=== PATIENT | male | born 1940 | race Caucasian/White ===

== ENCOUNTER → 2017-12-07 | Outpatient (CLI) | payer OTHER, MEDICARE ==
[~2017-12-07] MED LIST: AMLO5TAB2 PO; B2/V1TAB PO; FERR325T22 PO; LISI40TA4 PO; METOPROLOL PO; PANT40TA25 PO; ROSU20TA PO; ZOLP5TAB8 PO
== END | disposition home or self-care (01) ==
LOC: RAH 10:04
PROVIDERS: ATTEND Internal Medicine
DX: K76.0 Fatty (change of) liver, not elsewhere classified (principal); N28.1 Cyst of kidney, acquired
CPT/HCPCS: 76705

== ENCOUNTER 2018-01-04 12:10 | Inpatient (IN) | payer OTHER, MEDICARE ==
[~2018-01-04] VITALS: Ht 162.6 cm; Wt 79.8 kg
[2018-01-04 13:10] LABS: CREATININE 5.7 mg/dL (0.5-1.5)
[2018-01-04 13:12] LABS: BASOPHILS % (AUTO) 0.3 % (0.0-5.0); HEMATOCRIT 28.7 % (42-54); LYMPHOCYTES % (AUTO) 2.3 % (21.0-51.0); MEAN CORPUSCULAR HEMOGLOBIN 27.8 pg (27.0-33.0); MEAN CORPUSCULAR HGB CONC 33.1 g/dL (32.0-36.0); MEAN CORPUSCULAR VOLUME 84.1 fL (79-99); MONOCYTES % (AUTO) 7.9 % (3.0-13.0); NEUTROPHILS % (AUTO) 89.5 % (40.0-77.0); PLATELET COUNT (AUTO) 72 K/uL (130-400); RED BLOOD CELL COUNT(AUTO) 3.42 MIL/uL (4.50-6.20); WHITE BLOOD COUNT (AUTO) 11.4 K/uL (4.8-10.8)
[2018-01-04 13:15] LABS: ALBUMIN 2.9 g/dL (3.5-5.0); BILIRUBIN,TOTAL 0.7 mg/dL (0.2-1.0); TOTAL PROTEIN, SERUM 7.1 g/dL (6.0-8.3)
[2018-01-04] MEDS ORDERED: SODIUM CHLORIDE 0.9% 1000ML 1,000 ML IV ONE (13:24)
[2018-01-04] MEDS ORDERED: METRONIDAZOLE 500MG/100ML BAG 100 ML ONE (14:39)
[2018-01-04 15:00] LABS: APPEARANCE,URINE Turbid (CLEAR); BILIRUBIN,URINE Negative (NEGATIVE); COLOR,URINE Yellow (YELLOW); GLUCOSE, URINE (UA) Negative (NEGATIVE); KETONES,URINE Negative (NEGATIVE); LEUKOCYTE ESTERASE ,URINE Small (NEGATIVE); NITRATE,URINE Negative (NEGATIVE); OCCULT BLOOD,URINE Trace (NEGATIVE); PROTEIN,URINE POS 2+ (NEGATIVE); UROBILINOGEN,URINE 0.2 mg/dL (0.2-1.0)
[2018-01-04 15:25] LABS: BACTERIA,URINE Few /HPF (None Seen); RBC,URINE None Seen /HPF (0-1)
[2018-01-04 15:26] LABS: AMORPHOUS SEDIMENT,UR Many /LPF (None Seen)
[2018-01-04] MEDS ORDERED: MORPHINE SULFATE 2 MG/ML 1ML SYG ONE (17:03)
[2018-01-04] MEDS: METRONIDAZOLE 500MG/100ML BAG 100 ML IV SCH (22:00)
[2018-01-04] MEDS ORDERED: FAMOTIDINE/PF 20 MG/2 ML VIAL IV ONE (22:32)
[2018-01-04 23:01] VITALS: BP 107/57
[2018-01-04] MEDS: LEVOFLOXACIN 250 MG/D5W 50ML 50 ML IVPB SCH (23:10)
[2018-01-04] MEDS: SODIUM CHLORIDE 0.9% 1000ML 1,000 ML IV SCH (23:10)
[2018-01-04] MEDS: MORPHINE SULFATE 4 MG/1ML SYG IVP PRN (23:31)
[2018-01-05 04:12] VITALS: BP 99/57
[2018-01-05 04:40] LABS: BASOPHILS % (AUTO) 0.3 % (0.0-5.0); HEMATOCRIT 27.9 % (42-54); LYMPHOCYTES % (AUTO) 3.5 % (21.0-51.0); MEAN CORPUSCULAR HEMOGLOBIN 28.2 pg (27.0-33.0); MEAN CORPUSCULAR HGB CONC 33.3 g/dL (32.0-36.0); MEAN CORPUSCULAR VOLUME 84.7 fL (79-99); MONOCYTES % (AUTO) 8.3 % (3.0-13.0); NEUTROPHILS % (AUTO) 87.9 % (40.0-77.0); PLATELET COUNT (AUTO) 73 K/uL (130-400); RED BLOOD CELL COUNT(AUTO) 3.29 MIL/uL (4.50-6.20); WHITE BLOOD COUNT (AUTO) 8.6 K/uL (4.8-10.8)
[2018-01-05 04:54] LABS: ALBUMIN 2.6 g/dL (3.5-5.0); BILIRUBIN,TOTAL 0.5 mg/dL (0.2-1.0); CREATININE 5.6 mg/dL (0.5-1.5); POTASSIUM 4.1 mmol/L (3.5-5.1); TOTAL PROTEIN, SERUM 6.6 g/dL (6.0-8.3)
[2018-01-05] MEDS: METRONIDAZOLE 500MG/100ML BAG 100 ML IV SCH ×3 (05:35→22:35)
[2018-01-05] MEDS: MORPHINE SULFATE 4 MG/1ML SYG IVP PRN ×2 (06:57→16:37)
[2018-01-05 07:00] VITALS: BP 115/74
[2018-01-05] MEDS: FAMOTIDINE/PF 20 MG/2 ML VIAL IV SCH (08:26)
[2018-01-05] MEDS ORDERED: ENOXAPARIN SODIUM 30 MG/0.3 ML SQ SCH (09:00)
[2018-01-05 11:00] VITALS: BP 125/53
[2018-01-05] MEDS: SODIUM CHLORIDE 0.9% 1000ML 1,000 ML IV SCH ×2 (11:41→16:00)
[2018-01-05 16:00] VITALS: BP 92/50
[2018-01-05] MEDS: LEVOFLOXACIN 250 MG/D5W 50ML 50 ML IVPB SCH (16:38)
[2018-01-05 20:00] VITALS: BP 102/53
[2018-01-05 23:28] VITALS: BP 93/51
[2018-01-06] VITALS (7 sets, daily range): BP systolic 93–118; BP diastolic 51–64
[2018-01-06] MEDS: SODIUM CHLORIDE 0.9% 1000ML 1,000 ML IV SCH ×2 (01:04→14:01)
[2018-01-06] MEDS: MORPHINE SULFATE 4 MG/1ML SYG IVP PRN ×3 (01:33→19:01)
[2018-01-06 03:53] LABS: BASOPHILS % (AUTO) 0.1 % (0.0-5.0); HEMATOCRIT 26.9 % (42-54); LYMPHOCYTES % (AUTO) 2.4 % (21.0-51.0); MEAN CORPUSCULAR HEMOGLOBIN 27.9 pg (27.0-33.0); MEAN CORPUSCULAR VOLUME 84.4 fL (79-99); MONOCYTES % (AUTO) 10.7 % (3.0-13.0); NEUTROPHILS % (AUTO) 86.8 % (40.0-77.0); PLATELET COUNT (AUTO) 83 K/uL (130-400); RED BLOOD CELL COUNT(AUTO) 3.19 MIL/uL (4.50-6.20); RED CELL DISTRIBUTION WIDTH 15.1 % (11.0-15.5); WHITE BLOOD COUNT (AUTO) 15.2 K/uL (4.8-10.8)
[2018-01-06 04:09] LABS: CREATININE 5.5 mg/dL (0.5-1.5); MAGNESIUM 1.7 mg/dL (1.80-2.40); PHOSPHORUS 5.8 mg/dL (2.5-4.9); POTASSIUM 3.8 mmol/L (3.5-5.1); URIC ACID 4.8 mg/dL (2.6-7.2)
[2018-01-06] MEDS: METRONIDAZOLE 500MG/100ML BAG 100 ML IV SCH ×3 (05:53→21:26)
[2018-01-06] MEDS ORDERED: PHARMACY COMMUNICATION MISC SCH (07:00)
[2018-01-06] MEDS ORDERED: MAGNESIUM SULFATE 1 GM in SODIUM CHLORIDE 0.9% 50 ML IV SCH (07:00)
[2018-01-06] MEDS: FAMOTIDINE/PF 20 MG/2 ML VIAL IV SCH (08:21)
[2018-01-06 13:50] LABS: % IRON SATURATION 3.7 % (30-44)
[2018-01-06] MEDS: LEVOFLOXACIN 250 MG/D5W 50ML 50 ML IVPB SCH (16:07)
[2018-01-07] MEDS: MORPHINE SULFATE 4 MG/1ML SYG IVP PRN ×2 (01:28→17:40)
[2018-01-07] MEDS: SODIUM CHLORIDE 0.9% 1000ML 1,000 ML IV SCH ×4 (01:28→14:00)
[2018-01-07 03:48] VITALS: BP 108/61
[2018-01-07 03:49] LABS: HEMATOCRIT 28.7 % (42-54); MEAN CORPUSCULAR HEMOGLOBIN 27.9 pg (27.0-33.0); MEAN CORPUSCULAR HGB CONC 33.1 g/dL (32.0-36.0); MEAN CORPUSCULAR VOLUME 84.2 fL (79-99); PLATELET COUNT (AUTO) 111 K/uL (130-400); RED BLOOD CELL COUNT(AUTO) 3.41 MIL/uL (4.50-6.20); RED CELL DISTRIBUTION WIDTH 15.3 % (11.0-15.5)
[2018-01-07 04:10] LABS: BAND NEUTROPHILS % (MANUAL) 21 % (0-2); EOSINOPHILS % (MANUAL) 4 % (1-6); LYMPHOCYTES % (MANUAL) 2 % (22-44); MONOCYTES % (MANUAL) 2 % (2-9); SEGMENTED NEUTROPHILS % 71 % (40-70)
[2018-01-07 04:11] LABS: MAN.DIFF COMMENT-IMPRESSION MANUAL DIFFERENTIAL; PLATELET MORPHOLOGY COMMENT SLIGHTLY DECREASED
[2018-01-07 04:15] LABS: CREATININE 5.3 mg/dL (0.5-1.5); POTASSIUM 3.4 mmol/L (3.5-5.1)
[2018-01-07] MEDS: METRONIDAZOLE 500MG/100ML BAG 100 ML IV SCH ×3 (05:14→22:38)
[2018-01-07 07:41] VITALS: BP 103/54
[2018-01-07] MEDS: FAMOTIDINE/PF 20 MG/2 ML VIAL IV SCH (09:14)
[2018-01-07 10:46] LABS: MAGNESIUM 2.2 mg/dL (1.80-2.40); THYROID STIMULATING HORMONE 0.87 uIU/mL (0.36-3.74)
[2018-01-07 11:23] VITALS: BP 102/60
[2018-01-07] MEDS ORDERED: COMPOUND IV MISC 1 EACH IVSOLN MISC PRN (14:15)
[2018-01-07] MEDS: LEVOFLOXACIN 250 MG/D5W 50ML 50 ML IVPB SCH (16:06)
[2018-01-07 16:31] VITALS: BP 110/56
[2018-01-07 19:53] VITALS: BP 109/67
[2018-01-07] MEDS ORDERED: ZOLPIDEM TARTRATE 5 MG TAB PO PRN (21:00)
[2018-01-07 23:36] VITALS: BP 93/55
[2018-01-08 04:12] LABS: HEMATOCRIT 27.6 % (42-54); MEAN CORPUSCULAR HEMOGLOBIN 27.7 pg (27.0-33.0); MEAN CORPUSCULAR HGB CONC 33.1 g/dL (32.0-36.0); MEAN CORPUSCULAR VOLUME 83.6 fL (79-99); PLATELET COUNT (AUTO) 88 K/uL (130-400); RED CELL DISTRIBUTION WIDTH 15.3 % (11.0-15.5); WHITE BLOOD COUNT (AUTO) 12.2 K/uL (4.8-10.8)
[2018-01-08 04:19] VITALS: BP 121/62
[2018-01-08 04:19] LABS: POTASSIUM 3.5 mmol/L (3.5-5.1)
[2018-01-08 04:48] LABS: BAND NEUTROPHILS % (MANUAL) 22 % (0-2); LYMPHOCYTES % (MANUAL) 13 % (22-44); MAN.DIFF COMMENT-IMPRESSION MANUAL DIFFERENTIAL; MONOCYTES % (MANUAL) 6 % (2-9); PLATELET MORPHOLOGY COMMENT DECREASED; SEGMENTED NEUTROPHILS % 59 % (40-70)
[2018-01-08] MEDS: METRONIDAZOLE 500MG/100ML BAG 100 ML IV SCH ×3 (05:21→21:40)
[2018-01-08 07:00] VITALS: BP 108/52
[2018-01-08] MEDS: FAMOTIDINE/PF 20 MG/2 ML VIAL IV SCH (08:44)
[2018-01-08] MEDS: IRON SUCROSE COMPLEX 100 MG in SODIUM CHLORIDE 0.9% 50 ML IV SCH (10:15)
[2018-01-08] MEDS: POTASSIUM CHLORIDE 20 MEQ ERTAB PO SCH (10:15)
[2018-01-08 11:00] VITALS: BP 100/63
[2018-01-08] MEDS: SODIUM CHLORIDE 0.9% 1000ML 1,000 ML IV SCH (12:18)
[2018-01-08] MEDS ORDERED: HEPARIN SODIUM 1000UNIT/ML 10ML VIAL ONE (12:20)
[2018-01-08] MEDS ORDERED: LIDOCAINE HCL 2% 20ML ONE (12:21)
[2018-01-08] MEDS ORDERED: ISOVUE-300 100 ML VIAL IV ONE (12:22)
[2018-01-08] MEDS ORDERED: APIXABAN 2.5 MG TABLET PO SCH (14:45)
[2018-01-08 16:00] VITALS: BP 104/58
[2018-01-08] MEDS: LEVOFLOXACIN 250 MG/D5W 50ML 50 ML IVPB SCH (16:25)
[2018-01-08 20:04] VITALS: BP 116/60
[2018-01-08 23:59] VITALS: BP 91/66
[2018-01-09 04:30] VITALS: BP 92/58
[2018-01-09 04:40] LABS: HEMATOCRIT 27.4 % (42-54); MEAN CORPUSCULAR HEMOGLOBIN 29.1 pg (27.0-33.0); MEAN CORPUSCULAR HGB CONC 34.8 g/dL (32.0-36.0); MEAN CORPUSCULAR VOLUME 83.7 fL (79-99); PLATELET COUNT (AUTO) 96 K/uL (130-400); RED BLOOD CELL COUNT(AUTO) 3.27 MIL/uL (4.50-6.20); RED CELL DISTRIBUTION WIDTH 15.5 % (11.0-15.5)
[2018-01-09 04:42] LABS: CREATININE 4.2 mg/dL (0.5-1.5); POTASSIUM 3.5 mmol/L (3.5-5.1)
[2018-01-09 04:44] LABS: INR 1.34 (0.85-1.15); PARTIAL THROMBOPLASTIN TIME 45.1 SEC (26.3-35.5)
[2018-01-09 05:02] LABS: BAND NEUTROPHILS % (MANUAL) 2 % (0-2); LYMPHOCYTES % (MANUAL) 8 % (22-44); MAN.DIFF COMMENT-IMPRESSION MANUAL DIFFERENTIAL; METAMYELOCYTES % 1 % (0-0); MONOCYTES % (MANUAL) 18 % (2-9); PLATELET MORPHOLOGY COMMENT DECREASED; SEGMENTED NEUTROPHILS % 71 % (40-70)
[2018-01-09] MEDS: SODIUM CHLORIDE 0.9% 1000ML 1,000 ML IV SCH ×2 (06:00→14:46)
[2018-01-09] MEDS: METRONIDAZOLE 500MG/100ML BAG 100 ML IV SCH ×3 (06:45→21:26)
[2018-01-09 07:30] VITALS: BP 114/60
[2018-01-09] MEDS: POTASSIUM CHLORIDE 20 MEQ ERTAB PO SCH ×2 (09:45→12:00)
[2018-01-09 11:13] VITALS: BP 121/60
[2018-01-09 16:31] VITALS: BP 107/56
[2018-01-09] MEDS: LEVOFLOXACIN 250 MG/D5W 50ML 50 ML IVPB SCH (16:33)
[2018-01-09] MEDS: FAMOTIDINE/PF 20 MG/2 ML VIAL IV SCH (16:36)
[2018-01-09] MEDS: IRON SUCROSE COMPLEX 100 MG in SODIUM CHLORIDE 0.9% 50 ML IV SCH (16:36)
[2018-01-09 19:39] VITALS: BP 98/50
[2018-01-09] MEDS: APIXABAN 2.5 MG TABLET PO SCH (21:26)
[2018-01-09 23:20] VITALS: BP 109/60
[2018-01-10] VITALS (11 sets, daily range): BP systolic 102–121; BP diastolic 54–70
[2018-01-10 03:55] LABS: BASOPHILS % (AUTO) 0.3 % (0.0-5.0); EOSINOPHILS % (AUTO) 0.6 % (0.0-8.0); HEMATOCRIT 28.1 % (42-54); LYMPHOCYTES % (AUTO) 6.9 % (21.0-51.0); MEAN CORPUSCULAR HEMOGLOBIN 28.5 pg (27.0-33.0); MEAN CORPUSCULAR HGB CONC 34.3 g/dL (32.0-36.0); MONOCYTES % (AUTO) 12.2 % (3.0-13.0); PLATELET COUNT (AUTO) 88 K/uL (130-400); RED BLOOD CELL COUNT(AUTO) 3.38 MIL/uL (4.50-6.20); RED CELL DISTRIBUTION WIDTH 15.4 % (11.0-15.5); WHITE BLOOD COUNT (AUTO) 8.6 K/uL (4.8-10.8)
[2018-01-10 04:04] LABS: CREATININE 3.2 mg/dL (0.5-1.5); POTASSIUM 3.1 mmol/L (3.5-5.1)
[2018-01-10] MEDS: METRONIDAZOLE 500MG/100ML BAG 100 ML IV SCH ×3 (05:04→21:13)
[2018-01-10] MEDS ORDERED: ISOVUE-300 100 ML VIAL IV ONE (07:34)
[2018-01-10] MEDS ORDERED: LIDOCAINE HCL 2% 20ML ONE (07:34)
[2018-01-10] MEDS: FAMOTIDINE/PF 20 MG/2 ML VIAL IV SCH (09:00)
[2018-01-10] MEDS ORDERED: FENTANYL CITRATE PF 50 MCG/1 ML 2ML VIAL ONE (09:27)
[2018-01-10] MEDS: POTASSIUM CHLORIDE 20 MEQ ERTAB PO SCH ×2 (09:45→12:00)
[2018-01-10] MEDS ORDERED: DEXTROSE 50%-WATER 50 ML DISP.SYRIN IV PRN (10:15)
[2018-01-10] MEDS ORDERED: GLUCAGON 1MG KIT 1 MG ML IM PRN (10:15)
[2018-01-10] MEDS: APIXABAN 2.5 MG TABLET PO SCH ×2 (14:27→20:40)
[2018-01-10] MEDS: IRON SUCROSE COMPLEX 100 MG in SODIUM CHLORIDE 0.9% 50 ML IV SCH (14:27)
[2018-01-10] MEDS: LEVOFLOXACIN 250 MG/D5W 50ML 50 ML IVPB SCH (14:28)
[2018-01-10] MEDS: SODIUM CHLORIDE 0.9% 1000ML 1,000 ML IV SCH (22:00)
[2018-01-11 03:55] LABS: BASOPHILS % (AUTO) 0.4 % (0.0-5.0); EOSINOPHILS % (AUTO) 0.2 % (0.0-8.0); HEMATOCRIT 28.3 % (42-54); LYMPHOCYTES % (AUTO) 7.2 % (21.0-51.0); MEAN CORPUSCULAR HEMOGLOBIN 28.9 pg (27.0-33.0); MEAN CORPUSCULAR HGB CONC 34.4 g/dL (32.0-36.0); MEAN CORPUSCULAR VOLUME 83.8 fL (79-99); MONOCYTES % (AUTO) 9.8 % (3.0-13.0); NEUTROPHILS % (AUTO) 82.4 % (40.0-77.0); PLATELET COUNT (AUTO) 85 K/uL (130-400); RED BLOOD CELL COUNT(AUTO) 3.38 MIL/uL (4.50-6.20); WHITE BLOOD COUNT (AUTO) 7.2 K/uL (4.8-10.8)
[2018-01-11 03:59] VITALS: BP 129/76
[2018-01-11 03:59] LABS: CREATININE 2.3 mg/dL (0.5-1.5)
[2018-01-11 04:01] LABS: POTASSIUM 2.9 mmol/L (3.5-5.1)
[2018-01-11] MEDS ORDERED: POTASSIUM CHLORIDE 20MEQ/100ML 100 ML IV PRN (04:30)
[2018-01-11] MEDS ORDERED: LIDOCAINE HCL-MPF 1% 2ML VIAL IVP PRN (04:30)
[2018-01-11] MEDS ORDERED: MAGNESIUM 2GM PREMIX 50ML 50 ML IV PRN (04:30)
[2018-01-11] MEDS ORDERED: POTASSIUM CHLORIDE 10% ELIXIR 20 MEQ/15 ML UDCUP PO PRN (04:30)
[2018-01-11] MEDS: POTASSIUM CHLORIDE 20 MEQ ERTAB PO PRN ×2 (05:08→06:47)
[2018-01-11] MEDS: METRONIDAZOLE 500MG/100ML BAG 100 ML IV SCH (05:08)
[2018-01-11 07:25] VITALS: BP 108/65
[2018-01-11] MEDS ORDERED: FUROSEMIDE 10 MG/ML 4ML VIAL IV SCH (09:30)
[2018-01-11] MEDS ORDERED: POTASSIUM CHLORIDE 20 MEQ ERTAB PO SCH (09:30)
[2018-01-11] MEDS: FAMOTIDINE/PF 20 MG/2 ML VIAL IV SCH (10:05)
[2018-01-11] MEDS: IRON SUCROSE COMPLEX 100 MG in SODIUM CHLORIDE 0.9% 50 ML IV SCH (10:05)
[2018-01-11] MEDS: APIXABAN 2.5 MG TABLET PO SCH (10:06)
[2018-01-11 10:14] LABS: MAGNESIUM 2.1 mg/dL (1.80-2.40); POTASSIUM 3.1 mmol/L (3.5-5.1)
== END 2018-01-11 12:45 | disposition home or self-care (01) | DRG 356 ==
LOC: EDH 12:10 → EDHIP 15:40 → 2DH 22:53
PROVIDERS: ADMIT Family Medicine; ATTEND Family Medicine
PROC: 06H03DZ Insertion of Intraluminal Device into Inferior Vena Cava, Percutaneous Approach (ICD-10-PCS; principal; 2018-01-10)
DX: K57.92 Diverticulitis of intestine, part unspecified, without perforation or abscess without bleeding (principal); N17.0 Acute kidney failure with tubular necrosis; I26.99 Other pulmonary embolism without acute cor pulmonale; I82.402 Acute embolism and thrombosis of unspecified deep veins of left lower extremity; N39.0 Urinary tract infection, site not specified; E87.1 Hypo-osmolality and hyponatremia; J98.11 Atelectasis; E87.2 Acidosis; D64.9 Anemia, unspecified; I10 Essential (primary) hypertension; D69.6 Thrombocytopenia, unspecified; I25.10 Atherosclerotic heart disease of native coronary artery without angina pectoris; I12.9 Hypertensive chronic kidney disease with stage 1 through stage 4 chronic kidney disease, or unspecified chronic kidney disease; E87.6 Hypokalemia; E86.9 Volume depletion, unspecified; I48.0 Paroxysmal atrial fibrillation; K52.9 Noninfective gastroenteritis and colitis, unspecified; N18.9 Chronic kidney disease, unspecified; N28.1 Cyst of kidney, acquired; Z87.11 Personal history of peptic ulcer disease; Z87.440 Personal history of urinary (tract) infections; Z95.1 Presence of aortocoronary bypass graft
CPT/HCPCS: 36415; 37191; 71045; 74176; 76998; 78580; 80048; 80053; 81001; 82150; 83540; 83550; 83690; 83735; 83880; 84100; 84132; 84439; 84443; 84479; 84550; 85025; 85378; 85610; 85730; 93005; 93306; 93970; A9540; C1769; C1894; J1644; J1650; J1756; J1940; J1956; J2270; J3010; J3475; J3490; J7030; Q9967

== ENCOUNTER 2018-05-30 09:58 | Inpatient (IN) | payer OTHER, MEDICARE ==
[2018-05-30] VITALS (8 sets, daily range): BP systolic 102–126; BP diastolic 40–62
[~2018-05-30] VITALS: Ht 162.6 cm; Wt 65.5 kg
[~2018-05-30 09:58] MED LIST changes: -AMLO5TAB2 PO; -LISI40TA4 PO; -METOPROLOL PO
[2018-05-30 10:22] LABS: BASOPHILS % (AUTO) 1.4 % (0.0-5.0); EOSINOPHILS % (AUTO) 0.6 % (0.0-8.0); LYMPHOCYTES % (AUTO) 19.5 % (21.0-51.0); MEAN CORPUSCULAR HEMOGLOBIN 26.4 pg (27.0-33.0); MEAN CORPUSCULAR HGB CONC 29.6 g/dL (32.0-36.0); NEUTROPHILS % (AUTO) 64.5 % (40.0-77.0); NUCLEATED RED BLOOD CELLS 0.1 % (0.0-0.19); PLATELET COUNT (AUTO) 85 K/uL (130-400); RED BLOOD CELL COUNT(AUTO) 1.94 MIL/uL (4.50-6.20); RED CELL DISTRIBUTION WIDTH 15.5 % (11.0-15.5); WHITE BLOOD COUNT (AUTO) 3.7 K/uL (4.8-10.8)
[2018-05-30 10:26] LABS: CREATININE 1.5 mg/dL (0.5-1.5); POTASSIUM 3.8 mmol/L (3.5-5.1)
[2018-05-30 10:30] LABS: HEMATOCRIT 17.3 % (42-54)
[2018-05-30 10:35] LABS: INR 1.34 (0.85-1.15); PARTIAL THROMBOPLASTIN TIME 31.7 SEC (26.3-35.5)
[2018-05-30 10:36] LABS: ALBUMIN 2.9 g/dL (3.5-5.0); B-TYPE NATRIURETIC PEPTIDE 817 pg/mL (0-100); BILIRUBIN,TOTAL 0.9 mg/dL (0.2-1.0); TOTAL PROTEIN, SERUM 6.2 g/dL (6.0-8.3)
[2018-05-30] MEDS ORDERED: FAMOTIDINE/PF 20 MG/2 ML VIAL IV ONE (10:49)
[2018-05-30] MEDS ORDERED: LACTULOSE 20 GM/30 ML UDCUP PO PRN (11:15)
[2018-05-30] MEDS ORDERED: ONDANSETRON HCL 4 MG/2 ML VIAL IV PRN (11:15)
[2018-05-30] MEDS ORDERED: LEVOFLOXACIN 500 MG/D5W 100 ML 100 ML ONE (11:50)
[2018-05-30 12:51] LABS: RETICULOCYTE % (AUTO) 6.35 % (0.42-2.23)
[2018-05-30] MEDS ORDERED: LEVOFLOXACIN 500 MG/D5W 100 ML 100 ML IV SCH (13:00)
[2018-05-30] MEDS ORDERED: SODIUM CHLORIDE 0.9% 500ML 500 ML IV ONE (16:58)
[2018-05-30] MEDS ORDERED: BUMETANIDE 0.25 MG/ML 10 ML VIAL IV SCH (17:45)
[2018-05-30] MEDS: BUMETANIDE 0.25 MG/ML 10 ML 40 ML IV SCH (20:29)
[2018-05-30] MEDS: PANTOPRAZOLE 40 MG/VIAL IVP SCH (21:00)
[2018-05-30] MEDS: ZOLPIDEM TARTRATE 5 MG TAB PO SCH (21:00)
[2018-05-30] MEDS: FERROUS SULFATE 325 MG TABLET.DR PO SCH (21:21)
[2018-05-30] MEDS: ATORVASTATIN CALCIUM 20 MG TABLET PO SCH (21:21)
[2018-05-30] MEDS: ALBUMIN (HUMAN) 25% 50 ML IV SCH (21:21)
[2018-05-30 22:37] LABS: PROTEIN,URINE RANDOM 8.8 mg/dL (0-11.9)
[2018-05-31] VITALS (18 sets, daily range): BP systolic 91–143; BP diastolic 47–83
[2018-05-31] MEDS ORDERED: BUMETANIDE 0.25 MG/ML 4 ML VIAL ONE (01:40)
[2018-05-31] MEDS ORDERED: BUMETANIDE 0.25 MG/ML ONE (02:13)
[2018-05-31 04:10] LABS: HEMATOCRIT 22.4 % (42-54); MEAN CORPUSCULAR HEMOGLOBIN 27.2 pg (27.0-33.0); MEAN CORPUSCULAR HGB CONC 31.9 g/dL (32.0-36.0); MEAN CORPUSCULAR VOLUME 85.5 fL (79-99); NUCLEATED RED BLOOD CELLS 0.3 % (0.0-0.19); PLATELET COUNT (AUTO) 78 K/uL (130-400); RED BLOOD CELL COUNT(AUTO) 2.62 MIL/uL (4.50-6.20); RED CELL DISTRIBUTION WIDTH 16.2 % (11.0-15.5); WHITE BLOOD COUNT (AUTO) 3.4 K/uL (4.8-10.8)
[2018-05-31 04:23] LABS: ALBUMIN 3.1 g/dL (3.5-5.0); CREATININE 1.6 mg/dL (0.5-1.5); URIC ACID 4.6 mg/dL (2.6-7.2)
[2018-05-31 04:30] LABS: B-TYPE NATRIURETIC PEPTIDE 868 pg/mL (0-100)
[2018-05-31] MEDS: BUMETANIDE 0.25 MG/ML 10 ML 40 ML IV SCH (06:33)
[2018-05-31] MEDS ORDERED: POTASSIUM CHLORIDE 20 MEQ ERTAB PO SCH ×2 (08:45→12:45)
[2018-05-31] MEDS: MULTIVITAMIN TABLET PO SCH (08:51)
[2018-05-31] MEDS: FOLIC ACID 1 MG TABLET PO SCH (08:52)
[2018-05-31] MEDS: FERROUS SULFATE 325 MG TABLET.DR PO SCH ×2 (08:52→20:25)
[2018-05-31] MEDS: PANTOPRAZOLE 40 MG/VIAL IVP SCH ×2 (08:52→20:27)
[2018-05-31] MEDS: THIAMINE HCL 100 MG TABLET PO SCH (08:53)
[2018-05-31] MEDS: ICAPS PO SCH (08:53)
[2018-05-31] MEDS: ALBUMIN (HUMAN) 25% 50 ML IV SCH ×2 (08:59→16:46)
[2018-05-31] MEDS ORDERED: PANTOPRAZOLE SODIUM 40 MG TABLET.DR PO SCH (09:00)
[2018-05-31] MEDS ORDERED: PANTOPRAZOLE SODIUM 80 MG in SODIUM CHLORIDE 0.9% 100 ML IV SCH (09:00)
[2018-05-31] MEDS ORDERED: PROPOFOL 10 MG/ML 20ML VIAL IV ONE (13:47)
[2018-05-31] MEDS ORDERED: LIDOCAINE HCL-MPF 2% 5ML VIAL ONE (13:48)
[2018-05-31] MEDS ORDERED: EPINEPHRINE 1 MG/ML AMPULE ONE (13:53)
[2018-05-31] MEDS: LEVOFLOXACIN 250 MG/D5W 50ML IVPB SCH (16:50)
[2018-05-31] MEDS ORDERED: LORAZEPAM 2 MG/ML 1 ML VIAL IM PRN (18:30)
[2018-05-31 18:36] LABS: CREATININE 1.7 mg/dL (0.5-1.5); MAGNESIUM 1.8 mg/dL (1.80-2.40)
[2018-05-31 18:47] LABS: POTASSIUM 2.8 mmol/L (3.5-5.1)
[2018-05-31] MEDS ORDERED: MAGNESIUM 2GM PREMIX 50ML 50 ML IV SCH (19:00)
[2018-05-31] MEDS ORDERED: POTASSIUM CHLORIDE 10% ELIXIR 20 MEQ/15 ML UDCUP PO PRN (19:00)
[2018-05-31] MEDS: ZOLPIDEM TARTRATE 5 MG TAB PO SCH (20:25)
[2018-05-31] MEDS: POTASSIUM CHLORIDE 20 MEQ ERTAB PO PRN (20:25)
[2018-05-31] MEDS: ATORVASTATIN CALCIUM 20 MG TABLET PO SCH (20:25)
[2018-05-31 20:26] LABS: HEMATOCRIT 24.3 % (42-54)
[2018-05-31] MEDS ORDERED: CHLORDIAZEPOXIDE HCL 25 MG CAP PO ONE (21:00)
[2018-05-31] MEDS ORDERED: PHARMACY COMMUNICATION MISC SCH (21:30)
[2018-05-31] MEDS ORDERED: BUMETANIDE 0.25 MG/ML 10 ML 40 ML IV SCH (21:45)
[2018-05-31 23:12] LABS: APPEARANCE,URINE Clear (CLEAR); BILIRUBIN,URINE Negative (NEGATIVE); COLOR,URINE Yellow (YELLOW); GLUCOSE, URINE (UA) Negative (NEGATIVE); KETONES,URINE Negative (NEGATIVE); LEUKOCYTE ESTERASE ,URINE Negative (NEGATIVE); NITRATE,URINE Negative (NEGATIVE); OCCULT BLOOD,URINE Negative (NEGATIVE); PROTEIN,URINE Negative (NEGATIVE); UROBILINOGEN,URINE 0.2 mg/dL (0.2-1.0)
[2018-05-31] MEDS: POTASSIUM CHLORIDE 10MEQ/100ML 100 ML IV PRN (23:18)
[2018-05-31] MEDS: LIDOCAINE HCL-MPF 1% 2ML VIAL IVP PRN (23:18)
[2018-06-01 03:55] LABS: HEMATOCRIT 23.7 % (42-54); MEAN CORPUSCULAR HEMOGLOBIN 26.9 pg (27.0-33.0); MEAN CORPUSCULAR HGB CONC 31.9 g/dL (32.0-36.0); MEAN CORPUSCULAR VOLUME 84.3 fL (79-99); NUCLEATED RED BLOOD CELLS 0.2 % (0.0-0.19); PLATELET COUNT (AUTO) 77 K/uL (130-400); RED BLOOD CELL COUNT(AUTO) 2.81 MIL/uL (4.50-6.20); RED CELL DISTRIBUTION WIDTH 16.3 % (11.0-15.5); WHITE BLOOD COUNT (AUTO) 3.1 K/uL (4.8-10.8)
[2018-06-01 03:59] LABS: CREATININE 1.7 mg/dL (0.5-1.5); MAGNESIUM 2.4 mg/dL (1.80-2.40); POTASSIUM 3.2 mmol/L (3.5-5.1)
[2018-06-01 04:00] VITALS: BP 122/68
[2018-06-01 04:02] LABS: % IRON SATURATION 2.6 % (30-44)
[2018-06-01 04:23] LABS: BASOPHILS % (MANUAL) 1 % (0-2); LYMPHOCYTES % (MANUAL) 13 % (22-44); MAN.DIFF COMMENT-IMPRESSION MANUAL DIFFERENTIAL; MONOCYTES % (MANUAL) 12 % (2-9); REACTIVE LYMPHOCYTES 1 % (0-0); SEGMENTED NEUTROPHILS % 73 % (40-70)
[2018-06-01] MEDS: POTASSIUM CHLORIDE 10MEQ/100ML 100 ML IV PRN (04:26)
[2018-06-01] MEDS: LIDOCAINE HCL-MPF 1% 2ML VIAL IVP PRN (04:26)
[2018-06-01 07:31] VITALS: BP 132/71
[2018-06-01 08:36] LABS: HEMATOCRIT 24.9 % (42-54)
[2018-06-01] MEDS: ICAPS PO SCH (09:00)
[2018-06-01] MEDS ORDERED: IRON SUCROSE COMPLEX 100 MG in SODIUM CHLORIDE 0.9% 50 ML IV SCH ×2 (09:00)
[2018-06-01] MEDS ORDERED: COMPOUND IV MISC 1 EACH IVSOLN MISC PRN (09:00)
[2018-06-01] MEDS: FERROUS SULFATE 325 MG TABLET.DR PO SCH ×2 (09:35→20:42)
[2018-06-01] MEDS: FOLIC ACID 1 MG TABLET PO SCH (09:35)
[2018-06-01] MEDS: MULTIVITAMIN TABLET PO SCH (09:35)
[2018-06-01] MEDS: THIAMINE HCL 100 MG TABLET PO SCH (09:35)
[2018-06-01] MEDS: PANTOPRAZOLE 40 MG/VIAL IVP SCH ×2 (09:36→20:41)
[2018-06-01] MEDS: METOPROLOL TARTRATE 25 MG TAB PO SCH ×2 (09:36→20:42)
[2018-06-01 11:14] VITALS: BP 108/53
[2018-06-01] MEDS: LEVOFLOXACIN 250 MG/D5W 50ML IVPB SCH (12:39)
[2018-06-01] MEDS: POTASSIUM CHLORIDE 20 MEQ ERTAB PO PRN (14:39)
[2018-06-01 16:14] VITALS: BP 96/59
[2018-06-01 19:41] VITALS: BP 109/69
[2018-06-01] MEDS: ATORVASTATIN CALCIUM 20 MG TABLET PO SCH (20:42)
[2018-06-01] MEDS: ZOLPIDEM TARTRATE 5 MG TAB PO SCH (21:00)
[2018-06-01 23:58] VITALS: BP 95/70
[2018-06-02 04:08] VITALS: BP 102/63
[2018-06-02 04:15] LABS: B-TYPE NATRIURETIC PEPTIDE 191 pg/mL (0-100)
[2018-06-02 04:17] LABS: CREATININE 1.7 mg/dL (0.5-1.5); MAGNESIUM 2.3 mg/dL (1.80-2.40); PHOSPHORUS 4.1 mg/dL (2.5-4.9); THYROID STIMULATING HORMONE 0.92 uIU/mL (0.36-3.74)
[2018-06-02 04:21] LABS: BASOPHILS % (AUTO) 1.1 % (0.0-5.0); EOSINOPHILS % (AUTO) 0.7 % (0.0-8.0); HEMATOCRIT 22.8 % (42-54); LYMPHOCYTES % (AUTO) 27.1 % (21.0-51.0); MEAN CORPUSCULAR HEMOGLOBIN 26.5 pg (27.0-33.0); MEAN CORPUSCULAR HGB CONC 31.2 g/dL (32.0-36.0); MONOCYTES % (AUTO) 16.5 % (3.0-13.0); NEUTROPHILS % (AUTO) 54.6 % (40.0-77.0); NUCLEATED RED BLOOD CELLS 0.1 % (0.0-0.19); PLATELET COUNT (AUTO) 66 K/uL (130-400); RED BLOOD CELL COUNT(AUTO) 2.68 MIL/uL (4.50-6.20); RED CELL DISTRIBUTION WIDTH 15.8 % (11.0-15.5); WHITE BLOOD COUNT (AUTO) 3.3 K/uL (4.8-10.8)
[2018-06-02 04:22] LABS: POTASSIUM 2.9 mmol/L (3.5-5.1)
[2018-06-02] MEDS: POTASSIUM CHLORIDE 20 MEQ ERTAB PO PRN ×2 (04:40→06:16)
[2018-06-02 07:35] VITALS: BP 115/59
[2018-06-02] MEDS ORDERED: PANTOPRAZOLE SODIUM 40 MG TABLET.DR PO SCH (07:52)
[2018-06-02] MEDS ORDERED: DEXAMETHASONE SOD PHOSPHATE 4 MG/ML 1ML VIAL IVP SCH (08:00)
[2018-06-02] MEDS: ICAPS PO SCH (09:00)
[2018-06-02] MEDS: FERROUS SULFATE 325 MG TABLET.DR PO SCH (09:00)
[2018-06-02] MEDS ORDERED: SODIUM CHLORIDE 0.9% 250 ML IV ONE (09:56)
[2018-06-02] MEDS: THIAMINE HCL 100 MG TABLET PO SCH (10:26)
[2018-06-02] MEDS: FOLIC ACID 1 MG TABLET PO SCH (10:26)
[2018-06-02] MEDS: METOPROLOL TARTRATE 25 MG TAB PO SCH (10:27)
[2018-06-02] MEDS: MULTIVITAMIN TABLET PO SCH (10:27)
[2018-06-02] MEDS ORDERED: IRON SUCROSE COMPLEX 100 MG in SODIUM CHLORIDE 0.9% 50 ML IV SCH (10:30)
[2018-06-02] MEDS ORDERED: POTASSIUM CHLORIDE 20 MEQ ERTAB PO SCH (10:30)
[2018-06-02 11:15] VITALS: BP 95/50
[2018-06-02] MEDS: LEVOFLOXACIN 250 MG/D5W 50ML IVPB SCH (13:05)
[2018-06-02 16:15] VITALS: BP 112/55
[2018-06-02] MEDS ORDERED: FOLI1TAB15 PO (17:06)
[2018-06-02] MEDS ORDERED: METO25 PO (17:06)
[2018-06-02] MEDS ORDERED: FURO40TA7 PO (17:06)
[2018-06-02] MEDS ORDERED: ASCO500T9 PO (17:06)
[2018-06-02] MEDS ORDERED: THIAM100TB PO (17:06)
[2018-06-03] MEDS ORDERED: FUROSEMIDE 40 MG TABLET PO SCH (09:00)
== END 2018-06-02 18:15 | disposition home or self-care (01) | DRG 377 ==
LOC: EDH 09:58 → EDHIP 11:15 → 2AH 14:57
PROVIDERS: ADMIT Internal Medicine; ATTEND Internal Medicine
PROC: 3E0G8GC Introduction of Other Therapeutic Substance into Upper GI, Via Natural or Artificial Opening Endoscopic (ICD-10-PCS; principal; 2018-05-31)
PROC: 30233N1 Transfusion of Nonautologous Red Blood Cells into Peripheral Vein, Percutaneous Approach (ICD-10-PCS; 2018-05-31)
DX: K31.811 Angiodysplasia of stomach and duodenum with bleeding (principal); N17.0 Acute kidney failure with tubular necrosis; E44.0 Moderate protein-calorie malnutrition; D61.818 Other pancytopenia; I13.0 Hypertensive heart and chronic kidney disease with heart failure and stage 1 through stage 4 chronic kidney disease, or unspecified chronic kidney disease; D62 Acute posthemorrhagic anemia; Q27.30 Arteriovenous malformation, site unspecified; K27.4 Chronic or unspecified peptic ulcer, site unspecified, with hemorrhage; D50.0 Iron deficiency anemia secondary to blood loss (chronic); F10.20 Alcohol dependence, uncomplicated; N18.9 Chronic kidney disease, unspecified; E87.6 Hypokalemia; I25.10 Atherosclerotic heart disease of native coronary artery without angina pectoris; I48.91 Unspecified atrial fibrillation; I50.9 Heart failure, unspecified; R53.81 Other malaise; Z79.01 Long term (current) use of anticoagulants; Z86.718 Personal history of other venous thrombosis and embolism; Z95.1 Presence of aortocoronary bypass graft; Z68.24 Body mass index [BMI] 24.0-24.9, adult; Z80.9 Family history of malignant neoplasm, unspecified
CPT/HCPCS: 36415; 36430; 43235; 80048; 80053; 80339; 81003; 82040; 82140; 82270; 82550; 82570; 82607; 82746; 83540; 83550; 83735; 83874; 83880; 83883; 83930; 83935; 84100; 84156; 84166; 84300; 84443; 84484; 84550; 85014; 85018; 85025; 85027; 85045; 85610; 85730; 86038; 86160; 86162; 86215; 86235; 86325; 86334; 86850; 86900; 86901; 86922; 93005; 93970; 99291; A4218; C9113; J0171; J1100; J1756; J1956; J2060; J2704; J3475; J3490; J7030; J7040; P9016; P9047

== ENCOUNTER 2019-05-17 17:23 | Inpatient (IN) | payer MEDICARE ==
[~2019-05-17] VITALS: Ht 162.6 cm; Wt 69.5 kg
[~2019-05-17 17:23] MED LIST changes: +ASCO500T9 PO; +FOLI1TAB15 PO; +FURO40TA7 PO; +METO25 PO; -ROSU20TA PO; +ROSU20TA23 PO; +THIAM100TB PO
[2019-05-17] MEDS ORDERED: ONDANSETRON HCL 4 MG/2 ML VIAL ONE (17:59)
[2019-05-17] MEDS ORDERED: SODIUM CHLORIDE 0.9% 1000ML 1,000 ML IV ONE ×2 (18:00→19:32)
[2019-05-17 18:26] LABS: BASOPHILS % (AUTO) 0.7 % (0.0-5.0); EOSINOPHILS % (AUTO) 0.9 % (0.0-8.0); HEMATOCRIT 31.9 % (42-54); LYMPHOCYTES % (AUTO) 8.2 % (21.0-51.0); MEAN CORPUSCULAR HEMOGLOBIN 32.2 pg (27.0-33.0); MEAN CORPUSCULAR VOLUME 94.7 fL (79-99); MONOCYTES % (AUTO) 7.1 % (3.0-13.0); NEUTROPHILS % (AUTO) 83.1 % (40.0-77.0); PLATELET COUNT (AUTO) 119 K/uL (130-400); RED BLOOD CELL COUNT(AUTO) 3.37 MIL/uL (4.50-6.20); RED CELL DISTRIBUTION WIDTH 15.7 % (11.0-15.5); WHITE BLOOD COUNT (AUTO) 7.3 K/uL (4.8-10.8)
[2019-05-17 18:37] LABS: INR 1.21 (0.85-1.15); PARTIAL THROMBOPLASTIN TIME 32.4 SEC (26.3-35.5); PROTHROMBIN TIME 12.6 SEC (9.6-11.6)
[2019-05-17 18:44] LABS: CREATININE 3.2 mg/dL (0.5-1.5); POTASSIUM 5.3 mmol/L (3.5-5.1)
[2019-05-17 18:49] LABS: APPEARANCE,URINE Clear (CLEAR); BILIRUBIN,URINE Negative (NEGATIVE); COLOR,URINE Dark Yellow (YELLOW); GLUCOSE, URINE (UA) Negative (NEGATIVE); KETONES,URINE Negative (NEGATIVE); LEUKOCYTE ESTERASE ,URINE Moderate (NEGATIVE); NITRATE,URINE Negative (NEGATIVE); OCCULT BLOOD,URINE Nonhemolyzed Trace (NEGATIVE); PROTEIN,URINE Trace mg/dL (NEGATIVE)
[2019-05-17 18:58] LABS: ALBUMIN 3.7 g/dL (3.5-5.0); BILIRUBIN,TOTAL 1.1 mg/dL (0.2-1.0); TOTAL PROTEIN, SERUM 8.2 g/dL (6.0-8.3)
[2019-05-17 19:07] LABS: BACTERIA,URINE Few /HPF (None Seen); MUCUS,URINE Few LPF (None Seen)
[2019-05-17 19:26] LABS: PLATELET MORPHOLOGY COMMENT SLIGHTLY DECREASED
[2019-05-17] MEDS ORDERED: CEFTRIAXONE SODIUM 1 GM ONE (19:32)
[2019-05-17] MEDS ORDERED: DiphenhydrAMINE HCL 50 MG/ML VIAL ONE (20:24)
[2019-05-17] MEDS: SODIUM CHLORIDE 0.9% 1000ML 1,000 ML IV SCH (20:50)
[2019-05-17] MEDS ORDERED: ONDANSETRON HCL 4 MG/2 ML VIAL IV PRN (21:00)
[2019-05-17] MEDS ORDERED: ACETAMINOPHEN 325 MG TAB PO PRN ×2 (21:00)
[2019-05-17] MEDS ORDERED: FAMOTIDINE/PF 20 MG/2 ML VIAL IV ONE (21:13)
[2019-05-17] MEDS ORDERED: DIPHENHYDRAMINE HCL 25 MG CAPSULE ONE (21:13)
[2019-05-17] MEDS: SODIUM POLYSTYRENE SULFONATE 15 GM/60 ML ML PO SCH (22:30)
[2019-05-17] MEDS ORDERED: SODIUM POLYSTYRENE SULFONATE 15 GM/60 ML ML ONE (23:39)
[2019-05-18 00:02] VITALS: BP 143/69
--- NOTE | 2019-05-18 00:15 | NUR ---
ORDER FOR SCD'S IN PLACE, BUT PATIENT IS VERY RESTLESS AND FREQUENTLY GETS OUT OF BED PACING AROUND IN ROOM AND/OR GOING TO RESTROOM. SCD'S NOT IN PLACE FOR NOW, WILL CONTINUE TO MONITOR. Addendum: 05/18/19 at 0306 by SURENDRA FARR RN RN Amended: Links added.
[2019-05-18] MEDS ORDERED: ZOLP5TAB8 PO (01:56)
[2019-05-18] MEDS ORDERED: BIMA12.5OS OU (01:56)
[2019-05-18] MEDS ORDERED: LISI10TA7 PO (01:56)
[2019-05-18] MEDS ORDERED: AMLO5TAB9 PO (01:56)
[2019-05-18] MEDS ORDERED: LIFI1DRO OP (01:56)
[2019-05-18] MEDS ORDERED: POTA-79 PO (01:56)
[2019-05-18 04:00] VITALS: BP 113/63
[2019-05-18] MEDS ORDERED: ZOLPIDEM TARTRATE 5 MG TAB PO PRN (04:15)
[2019-05-18 05:37] LABS: EOSINOPHILS % (AUTO) 2.9 % (0.0-8.0); HEMATOCRIT 26.6 % (42-54); LYMPHOCYTES % (AUTO) 13.3 % (21.0-51.0); MEAN CORPUSCULAR HEMOGLOBIN 32.8 pg (27.0-33.0); MEAN CORPUSCULAR HGB CONC 34.4 g/dL (32.0-36.0); MEAN CORPUSCULAR VOLUME 95.2 fL (79-99); MONOCYTES % (AUTO) 13.4 % (3.0-13.0); NEUTROPHILS % (AUTO) 69.4 % (40.0-77.0); PLATELET COUNT (AUTO) 57 K/uL (130-400); RED BLOOD CELL COUNT(AUTO) 2.79 MIL/uL (4.50-6.20); RED CELL DISTRIBUTION WIDTH 15.1 % (11.0-15.5); WHITE BLOOD COUNT (AUTO) 4.1 K/uL (4.8-10.8)
[2019-05-18 05:51] LABS: CREATININE 2.5 mg/dL (0.5-1.5); POTASSIUM 4.6 mmol/L (3.5-5.1)
[2019-05-18 08:00] VITALS: BP 107/62
[2019-05-18] MEDS: EYE OU SCH (08:59)
[2019-05-18] MEDS: LIFITEGRAST OU SCH (08:59)
[2019-05-18] MEDS: FAMOTIDINE 20MG TAB 20 MG TAB PO SCH (09:00)
[2019-05-18] MEDS: FOLIC ACID 1 MG TABLET PO SCH (09:00)
[2019-05-18] MEDS: AMLODIPINE BESYLATE 5 MG TAB PO SCH (09:00)
[2019-05-18] MEDS: [UNRECOGNIZED DRUG - OTHER] PO SCH (09:00)
[2019-05-18] MEDS: FERROUS SULFATE 325 MG TABLET.DR PO SCH ×2 (09:00→20:40)
[2019-05-18] MEDS: ENOXAPARIN SODIUM 30 MG/0.3 ML SQ SCH (09:00)
[2019-05-18] MEDS: ASCORBIC ACID 500 MG TAB PO SCH (09:01)
[2019-05-18] MEDS: METOPROLOL TARTRATE 25 MG TAB PO SCH ×2 (09:01→20:44)
[2019-05-18] MEDS: LISINOPRIL 10 MG TABLET PO SCH (09:02)
--- NOTE | 2019-05-18 09:07 | NUR ---
PINA HELD THIS AM DUE TO PLT. COUNT OF 57.
[2019-05-18 12:00] VITALS: BP 105/54
[2019-05-18] MEDS: DIPHENHYDRAMINE HCL 25 MG CAPSULE PO PRN ×2 (15:02→20:40)
[2019-05-18] MEDS: SODIUM CHLORIDE 0.9% 1000ML 1,000 ML IV SCH (15:04)
[2019-05-18 16:00] VITALS: BP 81/49
[2019-05-18 20:00] VITALS: BP 93/46
[2019-05-18] MEDS: SODIUM POLYSTYRENE SULFONATE 15 GM/60 ML ML PO SCH (20:21)
[2019-05-18] MEDS: CEFTRIAXONE SODIUM 1 GM IVP SCH (20:39)
[2019-05-18] MEDS: ATORVASTATIN CALCIUM 40 MG TABLET PO SCH (20:40)
[2019-05-18] MEDS: LATANOPROST 2.5 ML DROPS OU SCH (21:00)
[2019-05-19] VITALS: BP 87/48
--- NOTE | 2019-05-19 00:20 | NUR ---
HYPOTENSION-CALLED Adi ZARCO N.P. TO REPORT TRENDING LOW BLOOD PRESSURES SINCE ADMISSION. EARLIER B/P 93/46, PATIENT ASYMPTOMATIC WITH CURRENT B/P AT 87/48. PATIENT TAKES X3 DIFFERENT B/P MEDS, LOPRESSOR WAS HELD EARLIER AT BEGINNING OF SHIFT. N.P. STATES MEDS WILL BE REVIEWED IN AM. WILL CONTINUE TO MONITOR.
[2019-05-19] MEDS: SODIUM CHLORIDE 0.9% 1000ML 1,000 ML IV SCH ×2 (00:26→10:08)
[2019-05-19 04:00] VITALS: BP 109/61
[2019-05-19 05:14] LABS: BASOPHILS % (AUTO) 1.4 % (0.0-5.0); EOSINOPHILS % (AUTO) 4.2 % (0.0-8.0); HEMATOCRIT 25.3 % (42-54); LYMPHOCYTES % (AUTO) 21.3 % (21.0-51.0); MEAN CORPUSCULAR HEMOGLOBIN 31.8 pg (27.0-33.0); MEAN CORPUSCULAR HGB CONC 33.5 g/dL (32.0-36.0); MONOCYTES % (AUTO) 14.9 % (3.0-13.0); NEUTROPHILS % (AUTO) 58.2 % (40.0-77.0); NUCLEATED RED BLOOD CELLS 0.1 % (0.0-0.19); PLATELET COUNT (AUTO) 51 K/uL (130-400); RED BLOOD CELL COUNT(AUTO) 2.66 MIL/uL (4.50-6.20); RED CELL DISTRIBUTION WIDTH 15.2 % (11.0-15.5); WHITE BLOOD COUNT (AUTO) 2.9 K/uL (4.8-10.8)
[2019-05-19 05:37] LABS: POTASSIUM 3.5 mmol/L (3.5-5.1)
[2019-05-19 08:00] VITALS: BP 101/60
--- NOTE | 2019-05-19 08:00 | NUR ---
AM SHIFT ASSESSMENT.
[2019-05-19] MEDS: LIFITEGRAST OU SCH (09:00)
[2019-05-19] MEDS: LISINOPRIL 10 MG TABLET PO SCH (09:00)
[2019-05-19] MEDS: AMLODIPINE BESYLATE 5 MG TAB PO SCH (09:00)
[2019-05-19] MEDS: METOPROLOL TARTRATE 25 MG TAB PO SCH (09:00)
[2019-05-19] MEDS: EYE OU SCH (09:00)
[2019-05-19] MEDS: [UNRECOGNIZED DRUG - OTHER] PO SCH (09:00)
[2019-05-19] MEDS: ENOXAPARIN SODIUM 30 MG/0.3 ML SQ SCH (09:00)
[2019-05-19] MEDS: FAMOTIDINE 20MG TAB 20 MG TAB PO SCH (09:42)
[2019-05-19] MEDS: FERROUS SULFATE 325 MG TABLET.DR PO SCH ×2 (09:43→20:15)
[2019-05-19] MEDS: FOLIC ACID 1 MG TABLET PO SCH (09:43)
[2019-05-19] MEDS: ASCORBIC ACID 500 MG TAB PO SCH (09:44)
[2019-05-19 12:00] VITALS: BP 91/51
--- NOTE | 2019-05-19 14:00 | NUR ---
DAUGHTER, DEANNE, CALLED FOR SOME INFO ON HER DAD, PHONE CALL TAKEN IN ROOM AND PT. STATES OK TO GIVE INFO TO DAUGHTER.
[2019-05-19] MEDS: DIPHENHYDRAMINE HCL 25 MG CAPSULE PO PRN ×2 (15:40→20:15)
[2019-05-19 16:00] VITALS: BP 104/54
[2019-05-19] MEDS: CEFTRIAXONE SODIUM 1 GM IVP SCH (16:54)
--- NOTE | 2019-05-19 17:04 | NUR ---
Initial: Met with pt and spouse this afternoon to discuss dcp. Per pt he lives w spouse. Prior to admission was independent w ADLs and that he just recently started using a cane occasionally.. He mentions that he was still driving prior to admission. Per pt he feels safe and comfortable to return home at [place]. CM to continue to follow and wait for Md recommendations. Addendum: 05/19/19 at 1706 by GANESH VALDEZ Amended: Links added.
--- NOTE | 2019-05-19 17:30 | NUR ---
ANNIE IVF ORDERED BY DR. Jacobs
--- NOTE | 2019-05-19 18:00 | NUR ---
RECEIVED CALL FROM LAB TO REPORT STOOL POS. FOR C-DIFF. PLACED ON ISO. CONTACT PLUS
[2019-05-19] MEDS: SODIUM POLYSTYRENE SULFONATE 15 GM/60 ML ML PO SCH (19:45)
[2019-05-19 20:00] VITALS: BP 84/44
[2019-05-19] MEDS: ATORVASTATIN CALCIUM 40 MG TABLET PO SCH (20:15)
[2019-05-19] MEDS: LATANOPROST 2.5 ML DROPS OU SCH (20:17)
[2019-05-20 00:03] VITALS: BP 83/41
[2019-05-20 04:00] VITALS: BP 85/43
[2019-05-20 05:07] LABS: BASOPHILS % (AUTO) 0.8 % (0.0-5.0); EOSINOPHILS % (AUTO) 3.7 % (0.0-8.0); HEMATOCRIT 24.4 % (42-54); LYMPHOCYTES % (AUTO) 14.6 % (21.0-51.0); MEAN CORPUSCULAR HEMOGLOBIN 32.8 pg (27.0-33.0); MEAN CORPUSCULAR HGB CONC 34.3 g/dL (32.0-36.0); MEAN CORPUSCULAR VOLUME 95.4 fL (79-99); MONOCYTES % (AUTO) 13.4 % (3.0-13.0); NEUTROPHILS % (AUTO) 67.5 % (40.0-77.0); NUCLEATED RED BLOOD CELLS 0.1 % (0.0-0.19); PLATELET COUNT (AUTO) 39 K/uL (130-400); RED BLOOD CELL COUNT(AUTO) 2.56 MIL/uL (4.50-6.20); RED CELL DISTRIBUTION WIDTH 15.5 % (11.0-15.5); WHITE BLOOD COUNT (AUTO) 2.6 K/uL (4.8-10.8)
[2019-05-20 05:16] LABS: CREATININE 1.6 mg/dL (0.5-1.5); POTASSIUM 3.7 mmol/L (3.5-5.1)
[2019-05-20] MEDS ORDERED: VANCOMYCIN PROTOCOL PER PHARMACY IV SCH (07:00)
[2019-05-20] MEDS ORDERED: METRONIDAZOLE 500 MG TABLET PO SCH (07:15)
[2019-05-20] MEDS ORDERED: VANC250C13 PO (07:17)
[2019-05-20 08:00] VITALS: BP 94/51
[2019-05-20] MEDS ORDERED: COMPOUND PO MISCELLANEOUS 1 EACH MISC MISC PRN (08:00)
[2019-05-20] MEDS: LIFITEGRAST OU SCH (09:00)
[2019-05-20] MEDS: ENOXAPARIN SODIUM 30 MG/0.3 ML SQ SCH (09:00)
[2019-05-20] MEDS: LISINOPRIL 10 MG TABLET PO SCH (09:00)
[2019-05-20] MEDS: METOPROLOL TARTRATE 25 MG TAB PO SCH (09:00)
[2019-05-20] MEDS: AMLODIPINE BESYLATE 5 MG TAB PO SCH (09:00)
[2019-05-20] MEDS: EYE OU SCH (09:00)
[2019-05-20] MEDS: [UNRECOGNIZED DRUG - OTHER] PO SCH (09:00)
[2019-05-20] MEDS: FERROUS SULFATE 325 MG TABLET.DR PO SCH (10:24)
[2019-05-20] MEDS: ASCORBIC ACID 500 MG TAB PO SCH (10:24)
[2019-05-20] MEDS: FOLIC ACID 1 MG TABLET PO SCH (10:24)
[2019-05-20] MEDS: FAMOTIDINE 20MG TAB 20 MG TAB PO SCH (10:25)
[2019-05-20] MEDS: DIPHENHYDRAMINE HCL 25 MG CAPSULE PO PRN (10:33)
[2019-05-20] MEDS: VANCOMYCIN 250MG/5ML ORAL SOLUTION 40ML PO SCH ×4 (10:33→14:21)
[2019-05-20 12:00] VITALS: BP 111/64
--- NOTE | 2019-05-20 14:35 | NUR ---
PT D/C HOME SAFELY PT D/C AT THIS TIME, PT TO FOLLOW UP WITH DR. DAVISON O/P, PT VERBALIZED UNDERSTANDING OF D/C INSTRUCTION, PT CURRENTLY D/C NOW BUT BUT PENDING TRANSPORTATION FROM [facility].
== END 2019-05-20 15:05 | disposition home or self-care (01) | DRG 372 ==
LOC: EDH 17:23 → OBSVTOIN 21:10 → EDHIP 21:10 → 3BH 23:19
PROVIDERS: ADMIT Hospitalist; ATTEND Hospitalist
DX: A04.9 Bacterial intestinal infection, unspecified (principal); N17.9 Acute kidney failure, unspecified; D61.818 Other pancytopenia; N39.0 Urinary tract infection, site not specified; M62.82 Rhabdomyolysis; I25.10 Atherosclerotic heart disease of native coronary artery without angina pectoris; Z95.1 Presence of aortocoronary bypass graft; I10 Essential (primary) hypertension; E78.5 Hyperlipidemia, unspecified; E87.5 Hyperkalemia; E86.1 Hypovolemia; E86.0 Dehydration; I48.91 Unspecified atrial fibrillation
CPT/HCPCS: 36415; 74018; 80048; 80053; 81001; 82270; 82550; 83605; 83630; 84132; 84484; 85025; 85610; 85730; 87040; 87088; 87507; 93005; G0378; J0696; J1200; J1650; J2405; J3370; J3490; J7030; Q0163